=== PATIENT | female | born 1965 | race Caucasian/White ===

== ENCOUNTER 2024-10-01 13:06 | Inpatient (IN) | payer MEDICAID, OTHER ==
[~2024-10-01] VITALS: Ht 162.6 cm; Wt 65.5 kg
[~2024-10-01 13:06] MED LIST: MIRT-89 PO; RISP3TAB77 PO
[2024-10-01 13:35] LABS: PLATELET COUNT (AUTO) 206 K/uL (150-450); RED BLOOD CELL COUNT(AUTO) 4.43 MIL/uL (4.00-5.20); RED CELL DISTRIBUTION WIDTH 14.0 % (11.5-14.5); WHITE BLOOD COUNT (AUTO) 5.4 K/uL (4.5-11.0)
[2024-10-01 13:38] LABS: COVID AG,FIA SOURCE NASAL SWAB
[2024-10-01] MEDS ORDERED: OLAN10TA74 PO (13:40)
[2024-10-01] MEDS ORDERED: HYDR-5256 PO (13:40)
[2024-10-01] MEDS ORDERED: LUMA42CA PO (13:40)
[2024-10-01 13:41] LABS: CALCIUM, TOTAL 9.3 mg/dL (8.8-10.5); CREATININE 0.78 mg/dL (0.60-1.30); GLOMERULAR FILTR. RATE CALC > 60 mL/min (>60); GLUCOSE,RANDOM 99 mg/dL (70-110); SODIUM SERUM 142 mmol/L (136-145); UREA NITROGEN, BLOOD 15 mg/dL (7-18)
[2024-10-01 14:02] LABS: SARS-COV2 (COVID) ANTIGEN,FIA Negative (Negative)
[2024-10-01 14:25] LABS: PH,URINE DRUG SCREEN 8.0 (5.0-8.0)
[2024-10-01 14:31] LABS: ALCOHOL, URINE DRUG SCREEN NEGATIVE (NEGATIVE); AMPHET/METH SCREEN,URINE NEGATIVE (NEGATIVE); BARBITURATE SCREEN, URINE NEGATIVE (NEGATIVE); CANNABINOID SCREEN,URINE NEGATIVE (NEGATIVE); COCAINE SCREEN,URINE NEGATIVE (NEGATIVE); METHADONE SCREEN, URINE NEGATIVE (NEGATIVE)
[2024-10-01 15:49] LABS: APPEARANCE,URINE CLEAR (CLEAR); GLUCOSE, URINE (UA) NEGATIVE (NEGATIVE); LEUKOCYTE ESTERASE ,URINE NEGATIVE (NEGATIVE); NITRATE,URINE NEGATIVE (NEGATIVE); OCCULT BLOOD,URINE NEGATIVE (NEGATIVE); SPECIFIC GRAVITIY, URINE 1.011 (1.003-1.030)
[2024-10-01 19:00] VITALS: BP 114/63; PULSE 72; RESP 18; TEMP 99.1; O2SAT 97
[2024-10-01 19:01] VITALS: BP 114/63; PULSE 72; RESP 18; TEMP 99.1; O2SAT 97
[2024-10-01 20:00] VITALS: BP 114/63; PULSE 72; RESP 18; TEMP 99.1; O2SAT 97
[2024-10-01] MEDS: ZOLPIDEM TARTRATE 10 MG TABLET PO PRN (20:37)
[2024-10-02] MEDS ORDERED: MAGNESIUM HYDROXIDE SUSPENSION 30 ML UDCUP PO PRN (04:15)
[2024-10-02] MEDS ORDERED: PETROLATUM,WHITE 28 GM JELLY TP PRN (04:15)
[2024-10-02] MEDS ORDERED: DOCUSATE SODIUM 100 MG CAPSULE PO PRN (04:15)
[2024-10-02] MEDS ORDERED: IBUPROFEN 600 MG TABLET PO PRN (04:15)
[2024-10-02] MEDS ORDERED: MAG HYDROX/ALUMINUM HYD/SIMETH ES 30 ML SUSPENSION UDCUP PO PRN (04:15)
[2024-10-02] MEDS ORDERED: OMEPRAZOLE 20 MG CAPSULE PO PRN (04:15)
[2024-10-02] MEDS ORDERED: BENZOCAINE/MENTHOL [CEPACOL] LOZENGE PO PRN (04:15)
[2024-10-02] MEDS ORDERED: LOPERAMIDE HCL 2 MG CAPSULE PO PRN (04:15)
[2024-10-02] MEDS ORDERED: BACITRACIN 28 GM OINTMENT TP PRN (04:15)
[2024-10-02] MEDS ORDERED: ACETAMINOPHEN 325 MG TABLET PO PRN (04:15)
[2024-10-02] MEDS ORDERED: ALBUTEROL SULFATE HFA 90 MCG/PUFF 8 GM INHALER IH PRN (04:15)
[2024-10-02] MEDS ORDERED: ONDANSETRON 4 MG TABLET PO PRN (04:15)
[2024-10-02 08:08] VITALS: BP 101/64; PULSE 69; RESP 17; TEMP 98.1; O2SAT 99
[2024-10-02 09:02] LABS: CHOL/HDL RATIO 2.6 (3.9-5.7); LDL CHOL (CALC.) 116.0 mg/dL (0-130)
[2024-10-02 20:33] VITALS: BP 101/71; PULSE 66; RESP 16; TEMP 97.7; O2SAT 100
[2024-10-03 08:09] VITALS: BP 113/74; PULSE 64; RESP 17; TEMP 97.4; O2SAT 99
[2024-10-03 20:41] VITALS: BP 114/67; PULSE 78; RESP 16; TEMP 98.4; O2SAT 98
[2024-10-04 08:50] VITALS: BP 95/65; PULSE 63; RESP 18; TEMP 97.4; O2SAT 99
[2024-10-04] MEDS ORDERED: OLAN10TA74 PO (12:24)
== END 2024-10-04 17:52 | disposition home or self-care (01) | DRG 750 ==
LOC: EMS 13:07 → B2S 16:49
PROVIDERS: ADMIT Psychiatry & Neurology Psychiatry; ATTEND Psychiatry & Neurology Psychiatry
PROC: GZ58ZZZ Individual Psychotherapy, Cognitive-Behavioral (ICD-10-PCS; 2024-10-02)
PROC: GZ56ZZZ Individual Psychotherapy, Supportive (ICD-10-PCS; 2024-10-02)
PROC: GZHZZZZ Group Psychotherapy (ICD-10-PCS; principal; 2024-10-04)
DX: F20.9 Schizophrenia, unspecified (principal); Z91.148 Patient's other noncompliance with medication regimen for other reason; R45.851 Suicidal ideations; F41.9 Anxiety disorder, unspecified; G47.00 Insomnia, unspecified; Z20.822 Contact with and (suspected) exposure to COVID-19; K59.00 Constipation, unspecified; M54.50 Low back pain, unspecified; R41.89 Other symptoms and signs involving cognitive functions and awareness
CPT/HCPCS: 80048; 80061; 80307; 81003; 83036; 85025; G0480